=== PATIENT | female | born 1955 | race Hispanic/Latino ===

== ENCOUNTER 2023-07-03 17:13 | Observation (INO) | payer MEDICARE ==
[2023-07-03] VITALS (14 sets, daily range): BP systolic 121–197; BP diastolic 60–102
[~2023-07-03] VITALS: Ht 152.4 cm; Wt 86.4 kg
--- NOTE | 2023-07-03 17:55 | NUR ---
pt rec'd through lobby, sent to ct for poss stroke alert, pt c/o chest pain and headache, with tingly lips. ct complete, teleneuro with dr. Lombardo. no cta ordered stroke alert cancelled. iv started, bg [address]
[2023-07-03 18:03] LABS: BASO% 0.3 % (0-3); EOS% 2.8 % (0-8); HEMOGLOBIN 14.8 g/dl (12.0-16.0); IMMATURE GRANULOCYTES 0.3 % (0.0-5.0); LYMPH% 46.5 % (15-41); MEAN CELL VOLUME 89.5 fL CALC (80.0-100.0); MEAN CORPUSCULAR HGB 28.8 pG CALC (26.0-32.0); MEAN CORPUSCULAR HGB CONC 32.2 g/dL CAL (32.0-36.0); MONO% 6.8 % (2-13); NEUT# 2.92 thou/uL (2.00-7.15); NEUT% 43.3 % (42-76); RED BLOOD COUNT 5.14 mill/uL (4.20-5.60); RED CELL DISTRI WIDTH 14.7 % (11.5-15.5)
[2023-07-03 18:16] LABS: ALBUMIN 4.4 g/dL (3.2-5.0); ALKALINE PHOSPHATASE 372 u/l (38-126); ANION GAP 15 (6-22 (CALC)); BILIRUBIN, TOTAL 0.6 mg/dL (0.02-1.3); BUN 24 mg/dL (8-23); BUN/CREATININE RATIO 29 (12-20 (CALC)); CALCULATED LDLCHOLESTEROL 101 mg/dL (62-129 (CALC)); CARBON DIOXIDE 31 mmol/l (22-30); CHLORIDE 100 mmol/l (95-108); CHOLESTEROL HDL RATIO 3.1 (<4.4 (CALC)); CREATININE 0.8 mg/dL (0.5-1.0); GFR FOR AFR.AMER. > 60 ML/MIN (>=60 (CALC)); GFR OTHER RACES > 60 ML/MIN (>=60 (CALC)); HDL CHOLESTEROL 62 mg/dL (39.0-59.0); POTASSIUM 4.5 mmol/l (3.5-5.1); SGOT/AST 93 u/l (9-36); SODIUM 141 mmol/l (137-146); TOTAL CHOLESTEROL 195 mg/dl (0-199); TOTAL PROTEIN 9.4 g/dL (6.3-8.2); TOTAL TRIGLYCERIDES 158 mg/dl (0-149); VLDL CHOLESTROL 32 mg/dl (1-41 (CALC))
--- NOTE | 2023-07-03 18:25 | NUR ---
pt in room awaiting results, family bedside
--- NOTE | 2023-07-03 18:56 | NUR ---
REPORT RECEIVED FROM Carlo LARIOS RN
--- NOTE | 2023-07-03 20:00 | NUR ---
BEDSIDE SWALLOW EVAL PASSED. PATIENT HAS NO DIFFICULTY SWALLOWING, NO COUGHING, NO GAGING OR VOMITING. PATIENT REPORTS FLUIDS FEEL NORMAL WHEN SWALLOWED. PATIENT DOES PRESENT WITH RIGHT SIDED DROOP, ABLE TO RAISE EYEBROWS AND OPEN EYES EVENLY, BUT UNABLE TO SMILE SYMETRICALLY. FLUID TENDS TO RUN OUT OF RIGHT SIDE OF MOUTH.
--- NOTE | 2023-07-03 20:45 | NUR ---
REPORT GIVEN TO Magnolia NICHOLSON RN.
--- NOTE | 2023-07-03 21:00 | NUR ---
PATIENT UP TO [facility] ROOM 281 VIA STRETCHER. DAUGHTERS AT [facility]. PATIENT ASSITED TO BATHROOM AND PROVIDED A URNE SPECIMEN, BLADDER SCANNER REVEALED 350PLUS CC IN BLADDER. 650ML OUT AT THIS TIME.
[2023-07-03 21:48] LABS: URINE BILIRUBIN - DIPSTICK Negative (NEGATIVE); URINE BLOOD DIPSTICK Negative (NEGATIVE); URINE GLUCOSE - DIPSTICK >=1000 mg/dL (NEGATIVE); URINE KETONE Negative (NEGATIVE); URINE LEUK ESTERASE Negative (NEGATIVE); URINE NITRITE - DIPSTICK Negative (Negative); URINE PH 6.5 (4.5-8.0); URINE PROTEIN - DIPSTICK 100 mg/dL (NEG-TRACE); URINE SPECIFIC GRAVITY 1.025
[2023-07-03 21:49] LABS: URINE COLOR Yellow
[2023-07-03 21:50] LABS: URINE RBC 0-2 RBC/hpf (0-5); URINE WBC 0-2 WBC/hpf (0-5)
--- NOTE | 2023-07-03 22:00 | NUR ---
PATIENT ADMITTED FROM ER VIA HER OWN WHEELCHAIR WITH ER STAFF AND FAMILY IN ATTENDANCE. PATIENT IS ENGLISH SPEAKING ONLY AND VISTING HERE WITH FAMILY FROM [place]-ARRIVED WITH Jun.22. PATIENT IS MAX ASSIST TO THE STANDING SCALE AND THEN TO BED. PATIENT HAS "BAD KNEES.". PATIENT IS STAYING WITH FAMILY HERE IN [place]. PATIENT BROUGHT TO THE ER BY FAMILY FOR LEFT FACIAL DROOP/NUMBNESS. CT NEG. PATIENT WITH SALINE LOCK TO LAC. JULIO MPLACED FOR STRESS INCONT. [id number] KEMAR WAS ABLE TO TRANSLATE AND PROVIDE PATIENT INFO. CALL LIGHT IN REACH. WILL CONT TO MONITOR.
--- NOTE | 2023-07-04 00:15 | NUR ---
PATIENT SITTING UP IN BED WATCHING TV. ALERT AND ORIENTED WITH NO COMPLAINTS. LAB WORK FOR TROP DRAWN FROM RIGHT HAND WITHOUT ANY DIFFICULTY AND SENT TO LAB. SALINE LOCK TO RIGHT AC INTACT AND HEALTHY WITH GOOD BLOOD RETURN. IVF NS HUNG AND INFUSING AT 80CC/HR. STILL WITH LEFT SIDE FACIAL DROOP. NO OTHER DEFICITS NOTED AT THIS TIME. PATIENT BS WAS 188 BUT PATIENT DID JUST HAVE TURKEY WRAP FOR DINNER. HUMALOG WAS NOT GIVEN. PUREWICK IN PLACE. LUNGS ARE DIMINISHED BUT CLEAR. ABD IS SOFT WITH ACTIVE BS. NO PERIPHERAL EDEMA NOTED. PULSES ARE PALPABLE. PATIENT ORIENTED TO ROOM AND SURROUNDINGS. INSTRUCTED ON USE OF NURSE CALL LIGHT SYSTEM AND TV REMOTE. SAFETY PRECAUTIONS REINFORCED. CALL LIGHT IN REACH. WILL CONT TO MONITOR.
[2023-07-04] MEDS ORDERED: AMLODIPINE BESYL5 MG PO (01:42)
[2023-07-04] MEDS ORDERED: COREG25 MG PO (01:42)
[2023-07-04] MEDS ORDERED: LEVEMIR100 UNIT SC (01:44)
[2023-07-04 04:30] VITALS: BP 156/76
--- NOTE | 2023-07-04 04:30 | NUR ---
PATIENT RESTING IN BED AT THIS TIME-EYES ARE CLOSED AND RESPS ARE EVEN AND UNLABORED. IVF PATENT AND INFUSING VIA LAC AT 80CC/HR. TELE MONITOR IN PLACE WITH LAST READING SR-74. CALL LIGHT IN REACH. WILL CONT TO MONITOR.
[2023-07-04 07:02] LABS: BASO% 0.3 % (0-3); EOS% 3.2 % (0-8); HEMATOCRIT 43.1 % (37.0-47.0); HEMOGLOBIN 13.6 g/dl (12.0-16.0); IMMATURE GRANULOCYTES 0.2 % (0.0-5.0); LYMPH% 44.9 % (15-41); MEAN CELL VOLUME 89.6 fL CALC (80.0-100.0); MEAN CORPUSCULAR HGB 28.3 pG CALC (26.0-32.0); MEAN CORPUSCULAR HGB CONC 31.6 g/dL CAL (32.0-36.0); MONO% 8.5 % (2-13); NEUT# 2.59 thou/uL (2.00-7.15); NEUT% 42.9 % (42-76); RED BLOOD COUNT 4.81 mill/uL (4.20-5.60); RED CELL DISTRI WIDTH 14.9 % (11.5-15.5)
[2023-07-04 07:36] LABS: ALBUMIN 3.6 g/dL (3.2-5.0); ALKALINE PHOSPHATASE 339 u/l (38-126); ANION GAP 12 (6-22 (CALC)); BILIRUBIN, TOTAL 0.5 mg/dL (0.02-1.3); BUN 25 mg/dL (8-23); BUN/CREATININE RATIO 37 (12-20 (CALC)); CARBON DIOXIDE 27 mmol/l (22-30); CHLORIDE 101 mmol/l (95-108); CREATININE 0.7 mg/dL (0.5-1.0); GFR FOR AFR.AMER. > 60 ML/MIN (>=60 (CALC)); GFR OTHER RACES > 60 ML/MIN (>=60 (CALC)); POTASSIUM 4.5 mmol/l (3.5-5.1); SGOT/AST 80 u/l (9-36); SODIUM 136 mmol/l (137-146); TOTAL PROTEIN 7.6 g/dL (6.3-8.2)
[2023-07-04 07:40] VITALS: BP 177/74
[2023-07-04 08:01] VITALS: BP 177/74
--- NOTE | 2023-07-04 08:58 | NUR ---
PT GLUCOSE 268 - ATTEMPTED TO GIVE ORDERED 3 UNITS OF HUMALOG BUT PT REFUSED. STATING SHE ONLY TAKES LEVEMIR. NOTIFIED HOWIE FRANCOIS, SHE WILL SPEAK WITH PT
--- NOTE | 2023-07-04 09:00 | NUR ---
PT REFUSED INSULIN FOR MORNING SLIDING SCALE. TAX ADJUSTER AWARE EDUCATED PT ON INSULIN, PT STATES ALLERGIC TO HUMALOG STATES GETS SOB. ASSESSMENT COMLETED. TELE MONITOR IN PLACE, CONTINOUS MONITORING PER ED. IV PATENT. FALL/SAFTEY PRECAUTION IN PLACE, CALL LIGHT WITHIN REACH.
[2023-07-04 11:12] VITALS: BP 142/69
--- NOTE | 2023-07-04 12:00 | NUR ---
PT EATING LUNCH. STATES NO NEEDS AT THIS TIME. FALL/SAFTEY PRECAUTIONS IN PLACE, CALL LIGHT LIGHT WITHIN REACH
[2023-07-04] MEDS ORDERED: VALTREX500 MG PO (13:57)
[2023-07-04] MEDS ORDERED: ARTIFICIA7 OD (13:59)
[2023-07-04] MEDS ORDERED: PREDNISONE20 MG PO (14:00)
--- NOTE | 2023-07-04 16:33 | NUR ---
Discharge instructions given. Patient verbalizes understanding of same. Discharged in stable condition via Wheelchair to Home with volunteer. All belongings sent with pt.
== END 2023-07-04 16:33 | disposition home or self-care (01) ==
LOC: ED 17:13 → ED-I 18:22 → ED 18:22 → ED-I 18:30 → ED 18:52 → MS2 18:53
PROVIDERS: Family Medicine; ADMIT Student in an Organized Health Care Education/Training Program; ATTEND Student in an Organized Health Care Education/Training Program
DX: G51.0 Bell's palsy (principal); I10 Essential (primary) hypertension; E11.9 Type 2 diabetes mellitus without complications; G47.33 Obstructive sleep apnea (adult) (pediatric); M25.572 Pain in left ankle and joints of left foot; M25.571 Pain in right ankle and joints of right foot; Z79.4 Long term (current) use of insulin; Z88.6 Allergy status to analgesic agent
CPT/HCPCS: J1650